=== PATIENT | female | born 1970 | race Caucasian/White ===

== ENCOUNTER → 2022-02-19 | Outpatient (CLI) | payer OTHER | LOC: DX 08:34 | PROVIDERS: ATTEND Surgery | DX: K21.9 Gastro-esophageal reflux disease without esophagitis (principal) | CPT/HCPCS: 0223U; 36415; 74246 ==

== ENCOUNTER 2022-03-18 07:08 | Observation (INO) | payer OTHER ==
[2022-03-14 08:20] LABS: BASOPHILS % 0.7 % (0.0-1.0); EOSINOPHILS # (AUTO) 0.3 (0.0-0.4); EOSINOPHILS % 4.8 % (0.0-6.0); HEMATOCRIT 37.5 % (34.2-44.1); HEMOGLOBIN 11.3 g/dL (12.0-16.0); LYMPHOCYTES # (AUTO) 1.9 (1.0-3.2); LYMPHOCYTES % 32.6 % (18.0-39.1); MEAN CORPUSCULAR HEMOGLOBIN 26.7 pg (28-32); MEAN CORPUSCULAR HGB CONC 30.1 g/dL (31-35); MEAN CORPUSCULAR VOLUME 88.7 fL (81-99); MONOCYTES # (AUTO) 0.5 (0.2-0.8); MONOCYTES % 8.2 % (4.4-11.3); NEUTROPHILS # (AUTO) 3.1 (2.1-6.9); NEUTROPHILS % 53.5 % (38.7-80.0); PLATELET COUNT 289 x10e3/uL (140-360); RED BLOOD COUNT 4.23 x10e6/uL (3.6-5.1); RED CELL DISTRIBUTION WIDTH 14.1 % (11.7-14.4)
[2022-03-14 08:50] LABS: ANION GAP 14.1 mmol/L (8-16); CREATININE, SERUM 0.69 mg/dL (0.57-1.11); POTASSIUM 4.1 mmol/L (3.5-5.1)
[~2022-03-18] VITALS: Ht 175.3 cm; Wt 99.8 kg
[~2022-03-18 07:08] MED LIST: ATIVAN0.5 MG PO; ATORVASTATIN CA40 MG PO; CARAFATE1 GM PO; CYCLOBENZAPRINE10 MG PO; DICYCLOMINE HCL10 MG PO; PHENTERMINE H37.5 M1; PROTONIX20 MG PO; SERTRALINE HCL100 MG PO; VALPROIC ACID250 MG
[2022-03-18] MEDS ORDERED: BUPIVACAINE 0.25% 30ML SDV ONE (10:09)
[2022-03-18] MEDS ORDERED: EPHEDRINE SULFATE INJ 50 MG/ML VIAL ONE (12:47)
[2022-03-18] MEDS ORDERED: ONDANSETRON HCL INJ 2MG/ML 2ML 2 MG/ML VIAL ONE (12:47)
[2022-03-18] MEDS ORDERED: DEXAMETHASONE SOD PHOS INJ 4 MG/ML SDV ONE (12:47)
[2022-03-18] MEDS ORDERED: ACETAMINOPHEN 1000 MG/100 ML IV ONE (12:47)
[2022-03-18] MEDS ORDERED: SEVOFLURANE INHAL SOLN 250 ML PEN BTL ONE (12:47)
[2022-03-18] MEDS ORDERED: PROPOFOL IV EMULSION 10 MG/ML 20 ML VIAL ONE (12:47)
[2022-03-18] MEDS ORDERED: ROCURONIUM BROMIDE 10 MG/ML 5ML VIAL IV ONE (12:47)
[2022-03-18] MEDS ORDERED: POVIDONE IODINE 0.05% 0.05 % ML PO ONE (12:47)
[2022-03-18] MEDS ORDERED: ACETAMINOPHEN 1000 MG/100 ML IV PRN (13:00)
[2022-03-18] MEDS: SODIUM CHLORIDE 0.9% 250ML IRRIG IR SCH ×3 (13:00→20:57)
[2022-03-18] MEDS: HYDROMORPHONE 1MG/1ML INJ IV PRN ×3 (13:15→20:57)
[2022-03-18] MEDS ORDERED: MIDAZOLAM HCL 2 MG/2 ML VIAL ONE (13:18)
[2022-03-18] MEDS ORDERED: FENTANYL CITRATE/PF 100MCG/2 ML INJ ONE ×2 (13:18→13:52)
[2022-03-18] MEDS ORDERED: KETAMINE HCL INJ 50 MG/ML 10 ML VIAL ONE (13:18)
[2022-03-18] MEDS ORDERED: METOCLOPRAMIDE HCL 10 MG/2ML VIAL ONE (13:43)
[2022-03-18 16:55] VITALS: BP 119/61
[2022-03-18 16:59] VITALS: BP 119/61
[2022-03-18 17:01] VITALS: BP 119/61
[2022-03-18] MEDS: SODIUM CHLORIDE 0.9% 1000ML 1,000 ML IV SCH (17:36)
[2022-03-18 20:01] VITALS: BP 119/61
[2022-03-18 20:36] VITALS: BP 135/74
[2022-03-19] VITALS (8 sets, daily range): BP systolic 111–127; BP diastolic 63–77
[2022-03-19] MEDS: HYDROMORPHONE 1MG/1ML INJ IV PRN ×4 (00:15→11:29)
[2022-03-19] MEDS: SODIUM CHLORIDE 0.9% 250ML IRRIG IR SCH ×6 (00:15→21:00)
[2022-03-19] MEDS: SODIUM CHLORIDE 0.9% 1000ML 1,000 ML IV SCH ×3 (02:00→12:03)
[2022-03-19] MEDS: ONDANSETRON HCL INJ 2MG/ML 2ML 2 MG/ML VIAL IV PRN ×2 (04:29→11:36)
[2022-03-19 05:43] LABS: BASOPHILS % 0.3 % (0.0-1.0); EOSINOPHILS % 0.3 % (0.0-6.0); HEMATOCRIT 30.9 % (34.2-44.1); HEMOGLOBIN 9.9 g/dL (12.0-16.0); LYMPHOCYTES # (AUTO) 1.5 (1.0-3.2); LYMPHOCYTES % 13.5 % (18.0-39.1); MEAN CORPUSCULAR HEMOGLOBIN 26.7 pg (28-32); MEAN CORPUSCULAR VOLUME 83.3 fL (81-99); MONOCYTES # (AUTO) 0.7 (0.2-0.8); MONOCYTES % 6.6 % (4.4-11.3); NEUTROPHILS # (AUTO) 8.7 (2.1-6.9); NEUTROPHILS % 78.8 % (38.7-80.0); PLATELET COUNT 264 x10e3/uL (140-360); RED BLOOD COUNT 3.71 x10e6/uL (3.6-5.1); RED CELL DISTRIBUTION WIDTH 14.4 % (11.7-14.4)
[2022-03-19 06:28] LABS: ANION GAP 12.8 mmol/L (8-16); CALCIUM 8.1 mg/dL (8.4-10.2); CREATININE, SERUM 0.67 mg/dL (0.57-1.11); POTASSIUM 3.8 mmol/L (3.5-5.1)
[2022-03-19] MEDS: Morphine 2mg Syringe 2 MG/ML SYR IV PRN ×3 (14:50→22:47)
[2022-03-20] MEDS: Morphine 2mg Syringe 2 MG/ML SYR IV PRN ×3 (04:12→12:00)
[2022-03-20 04:43] VITALS: BP 112/77
[2022-03-20 06:37] VITALS: BP 120/66
[2022-03-20 08:03] VITALS: BP 144/73
[2022-03-20 08:20] VITALS: BP 144/73
[2022-03-20 11:56] VITALS: BP 121/69
[2022-03-20] MEDS: SODIUM CHLORIDE 0.9% 1000ML 1,000 ML IV SCH (12:00)
== END 2022-03-20 13:40 | disposition home or self-care (01) ==
LOC: OR 07:08 → PACU V 13:00 → MED/SURG3 17:02
PROVIDERS: ADMIT Surgery; ATTEND Surgery
DX: K44.9 Diaphragmatic hernia without obstruction or gangrene (principal); K21.9 Gastro-esophageal reflux disease without esophagitis; Z20.822 Contact with and (suspected) exposure to COVID-19; F17.210 Nicotine dependence, cigarettes, uncomplicated
CPT/HCPCS: 0223U; 36415 ×2; 43281; 80048 ×2; 81025; 85025 ×2; 93005; C1766; C9113 ×2; G0378 ×3; J0131; J1100; J1170 ×2; J2250; J2270 ×2; J2405 ×2; J2704; J2765; J3010; J7030 ×2